=== PATIENT | male | born 1995 | race Caucasian/White ===

== ENCOUNTER 2016-07-10 07:20 | Emergency (ER) | payer SELFPAY ==
[~2016-07-10] VITALS: Ht 182.9 cm; Wt 74.8 kg
[~2016-07-10 07:20] MED LIST: BENZ100C18 PO; CEPH-507 PO; DENIES; DOXY100C2 PO; FAMO20TA5 PO; HYDR-3812 PO; HYDR-757 PO; METH4TAB PO; OMEP20CA12 PO; SUCR1ORA5 PO; SULF1TAB35 PO
--- OUTSIDE RECORDS SUMMARY | 2016-07-10 07:26 | XMS REPORT | Continuity of Care Document ---
Author Author [facility] Organization [facility] Address Unknown Phone Unavailable Care Team Providers Care Welfare Investigator Name Role Phone NO, LOCAL PHYSICIAN PCP Unavailable Insurance Providers Payer Name Policy Number Subscriber Name Relationship [employer] [id number] Ángel Villafana Self / Same As Patient Advance Directives Directive Response Recorded Date/Time Advance Directives No 10/31/15 9:40pm Health Care Power of Integrated Logistics Support Manager No 10/31/15 9:40pm Organ Donor No 10/31/15 9:40pm Chief Complaint and Reason for Visit Chief Complaint Abdominal/GI Problems Reason for Visit [id number] Nausea and vomiting Problems Active Problems Medical Problem Onset Date Status Biceps tendinitis Unknown Acute Bronchitis Unknown Acute Chest wall pain Unknown Acute Forearm laceration Unknown Acute Gastritis and duodenitis Unknown Acute Gastroenteritis Unknown Acute Hematoma Unknown Acute Left upper quadrant abdominal pain of unknown etiology Unknown Acute Marijuana use Unknown Acute Nausea and vomiting Unknown Acute Postoperative pain Unknown Acute Right upper quadrant pain Unknown Acute Upper abdominal pain Unknown Acute Medications Current Home Medications Medication Dose Units Route Directions Days/Qty Instructions Start Date Omeprazole 20 Mg 20 Mg Oral Twice A Day 30 01/03/16 Sucralfate 1 Gm/10 Ml 1 Gm Oral Four Times Daily 1200 30 minutes before meals and 30 minutes before bed. Shake well 01/03/16 Hydrocodone/Acetaminophen 1 Each 1 Each Oral Every 6 Hours as needed for Pain 8 01/03/16 Past Home Medications Medication Directions Ordered Status Famotidine (Pepcid) 20 Mg Tablet, 1 Each Oral Twice Daily And Prn 06/11/12 Discontinued Social History Social History Problem Response Recorded Date/Time Alcohol Use Occasionally Uses 10/31/2015 9:40pm Recreational Drug Use Y THC, METH--DENIES IV DRUG USE 10/31/2015 9:40pm Recent Foreign Travel No 12/31/2012 7:53pm Recent Infectious Disease Exposure Yes 03/26/2013 5:45pm Hospitalization with Isolation Denies 01/03/2016 7:05am Sexually Transmitted Disease No 01/03/2016 9:24am HIV/AIDS No 01/03/2016 9:24am Do you dip or chew tobacco? No 10/31/2015 9:40pm Recent Hopitalizations No 01/03/2016 9:24am Sexually Transmitted Disease No 01/03/2016 9:24am Hospitalization with Isolation Denies 01/03/2016 7:05am Hospital Discharge Instructions No hospital discharge instructions. Plan of Care Discharge Date 01/03/16 10:51am Disposition 01 HOME, SELF-CARE Condition at Discharge Improved Instructions/Education Provided Gastritis (ED) Acute Abdominal Pain (ED) Forms Provided Work Release Form Prescriptions See Medication Section Referrals CINTHIA AZAR DO - NO,LOCAL PHYSICIAN - Primary Care Physician Additional Instructions/Education Use omeprazole twice daily and use Carafate 30 minutes before meals and bedtime. Avoid the following: Large meals, eating close to bedtime, alcohol, tobacco products, marijuana, spicy foods, carbonation, caffeine, chocolate, citrus fruits and juices, tomato products, mint, NSAID medications such as ibuprofen or naproxen, or anything else you know irritate your stomach. Follow-up with Dr. Azar as soon as possible. Follow-up with your primary care provider as soon as possible. Return to care if symptoms worsen. Use Tylenol for mild pain or hydrocodone for more severe pain. All discharge instructions reviewed with patient and/or family. Voiced understanding. Functional Status No functional status results. Allergies, Adverse Reactions, Alerts No known allergies. Immunizations No immunization records. Vital Signs Acute Vital Signs Vital Response Date/Time Temperature (Fahrenheit) 98.7 degrees F (97.6 - 99.5) 01/03/2016 7:05am Temperature (Calculated Celsius) 37.68230 degrees C (36.4 - 37.5) 01/03/2016 7:05am Temperature Source Temporal 01/03/2016 7:05am Pulse Rate (adult) 78 bpm (60 - 90) 01/03/2016 7:05am Respiratory Rate 18 bpm (12 - 24) 01/03/2016 7:05am O2 Sat by Pulse Oximetry 98 % (88 - 100) 01/03/2016 7:05am Blood Pressure 130/103 mm Hg 01/03/2016 7:05am Blood Pressure Mean 112 mm Hg 01/03/2016 7:05am Pain Numeric Pain Scale 5-Moderate Pain 01/03/2016 8:00am Height (Feet) 6 feet 01/03/2016 7:05am Height (Calculated Centimeters) 182.117198 cm 01/03/2016 7:05am Weight (Pounds) 160 pounds 01/03/2016 7:05am Weight (Calculated Kilograms) 72.441815 kilograms 01/03/2016 7:05am Capillary Refill Capillary Refill Less Than 3 Seconds 01/03/2016 7:05am Height 6 ft 0 in Weight 160 lb Body Mass Index 21.7 kg/m^2 Results Laboratory Results Test Name Result Units Flags Reference Collection Date/Time Result Date/ Time Comments White Blood Count 6.6 10^3/uL 4.3-11.0 01/03/2016 7:16am 01/03/2016 7: 23am Red Blood Count 5.31 10^6/uL 4.35-5.85 01/03/2016 7:1601/03/2016 7: 23am Hemoglobin 16.1 G/DL 13.3-17.7 01/03/2016 7:1601/03/2016 7:23am Hematocrit 44 % 40-54 01/03/2016 7:1601/03/2016 7:23am Mean Corpuscular Volume 82 FL 80-99 01/03/2016 7:1601/03/2016 7: 23am Mean Corpuscular Hemoglobin 30 PG 25-34 01/03/2016 7:1601/03/2016 7: 23am Mean Corpuscular Hemoglobin Concent 37 G/DL H 32-36 01/03/2016 7:1605/2015 7:23am Red Cell Distribution Width 12.8 % 10.0-14.5 01/03/2016 7:162015 7:23am Platelet Count 269 10^3/uL 130-400 01/03/2016 7:1601/03/2016 7:23am Mean Platelet Volume 10.7 FL H 7.4-10.4 01/03/2016 7:1601/03/2016 7: 23am Neutrophils (%) (Auto) 57 % 42-75 01/03/2016 7:1601/03/2016 7:23am Lymphocytes (%) (Auto) 28 % 12-44 01/03/2016 7:1601/03/2016 7:23am Monocytes (%) (Auto) 12 % 0-12 01/03/2016 7:1601/03/2016 7:23am Eosinophils (%) (Auto) 2 % 0-10 01/03/2016 7:1601/03/2016 7:23am Basophils (%) (Auto) 1 % 0-10 01/03/2016 7:1601/03/2016 7:23am Neutrophils # (Auto) 3.8 X 10^3 1.8-7.8 01/03/2016 7:1601/03/2016 7: 23am Lymphocytes # (Auto) 1.9 X 10^3 1.0-4.0 01/03/2016 7:1601/03/2016 7: 23am Monocytes # (Auto) 0.8 X 10^3 0.0-1.0 01/03/2016 7:1601/03/2016 7: 23am Eosinophils # (Auto) 0.1 10^3/uL 0.0-0.3 01/03/2016 7:1601/03/2016 7 :23am Basophils # (Auto) 0.0 10^3/uL 0.0-0.1 01/03/2016 7:1601/03/2016 7: 23am Urine Color YELLOW 01/03/2016 7:58am 01/03/2016 8:36am Urine Clarity CLEAR 01/03/2016 7:58am 01/03/2016 8:36am Urine pH 7 5-9 01/03/2016 7:58am 01/03/2016 8:36am Urine Specific [place] 1.005 * 1.016-1.022 01/03/2016 7:58am 2015 8:36am Urine Protein 1+ * NEGATIVE 01/03/2016 7:58am 01/03/2016 8:36am Urine Glucose (UA) NEGATIVE NEGATIVE 01/03/2016 7:58am 01/03/2016 8: 36am Urine RBC (Auto) NEGATIVE NEGATIVE 01/03/2016 7:58am 01/03/2016 8: 36am Urine Ketones NEGATIVE NEGATIVE 01/03/2016 7:58am 01/03/2016 8:36am Urine Nitrite NEGATIVE NEGATIVE 01/03/2016 7:58am 01/03/2016 8:36am Urine Bilirubin NEGATIVE NEGATIVE 01/03/2016 7:58am 01/03/2016 8: 36am Urine Urobilinogen NORMAL MG/DL NORMAL 01/03/2016 7:58am 01/03/2016 8: 36am Urine Leukocyte Esterase NEGATIVE NEGATIVE 01/03/2016 7:58am 2015 8:36am Urine RBC NONE /HPF 01/03/2016 7:58am 01/03/2016 8:36am Urine WBC 0-2 /HPF 01/03/2016 7:58am 01/03/2016 8:36am Urine Bacteria NEGATIVE /HPF 01/03/2016 7:58am 01/03/2016 8:36am Urine Squamous Epithelial Cells 0-2 /HPF 01/03/2016 7:58am 2015 8:36am Urine Crystals NONE /LPF 01/03/2016 7:58am 01/03/2016 8:36am Urine Casts NONE /LPF 01/03/2016 7:58am 01/03/2016 8:36am Urine Mucus NEGATIVE /LPF 01/03/2016 7:58am 01/03/2016 8:36am Urine Culture Indicated NO 01/03/2016 7:58am 01/03/2016 8:36am Sodium Level 136 MMOL/L 135-145 01/03/2016 7:16am 01/03/2016 7:42am Potassium Level 3.6 MMOL/L 3.6-5.0 01/03/2016 7:16am 01/03/2016 7:42am Chloride Level 103 MMOL/L 98-107 01/03/2016 7:16am 01/03/2016 7:42am Carbon Dioxide Level 19 MMOL/L L 21-32 01/03/2016 7:16am 01/03/2016 7: 42am Anion Gap 14 MMOL/L 5-14 01/03/2016 7:1601/03/2016 7:42am Blood Urea Nitrogen 20 MG/DL H 7-18 01/03/2016 7:01/03/2016 7:42am Creatinine 1.24 MG/DL 0.60-1.30 01/03/2016 7:01/03/2016 7:42am BUN/Creatinine Ratio 16 01/03/2016 7:01/03/2016 7:42am Estimat Glomerular Filtration Rate > 60 01/03/2016 7:2015 7:42am GFR INTERPRETIVE DATA UNITS FOR ESTIMATED GFR (eGFR): mL/min/1.73 M2 REFERENCE RANGE FOR ESTIMATED GFR (eGFR) eGFR NORMAL eGFR >60 MODERATELY DECREASED eGFR 30-59 SEVERLY DECREASED eGFR 15-29 KIDNEY FAILURE <15 (OR DIALYSIS) Glucose Level 111 MG/DL H 70-105 01/03/2016 7:01/03/2016 7:42am Calcium Level 9.5 MG/DL 8.5-10.1 01/03/2016 7:01/03/2016 7:42am Magnesium Level 2.5 MG/DL H 1.8-2.4 01/03/2016 7:01/03/2016 7:43am Total Bilirubin 0.7 MG/DL 0.1-1.0 01/03/2016 7:01/03/2016 7:42am Alkaline Phosphatase 66 U/L 40-136 01/03/2016 7:01/03/2016 7:42am Aspartate Amino Transf (AST/SGOT) 22 U/L 5-34 01/03/2016 7:2015 7:42am Alanine Aminotransferase (ALT/SGPT) 16 U/L 0-55 01/03/2016 7:01/02 7:42am Total Protein 7.4 G/DL 6.4-8.2 01/03/2016 7:01/03/2016 7:42am Albumin 5.0 G/DL H 3.2-4.5 01/03/2016 7:01/03/2016 7:42am Lipase 13 U/L 8-78 01/03/2016 7:01/03/2016 8:50am Monoscreen NEGATIVE NEGATIVE 01/03/2016 7:01/03/2016 8:30am Procedures No known history of procedures. Encounters Encounter Location Arrival/Admit Date Discharge/Depart Date Attending Provider Registered Emergency Room [facility] 01/03/16 6:57am VLADIMIR MARTINEZ MD Recent Diagnosis
[2016-07-10] MEDS ORDERED: CLON1TAB PO (07:50)
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
[2016-07-10 09:49] VITALS: BP 139/90
== END 2016-07-10 09:52 | disposition left against medical advice (07) ==
LOC: EDUNIT# 07:20 → ER 07:22
DX: R51 Headache (principal); M54.5 Low back pain; Z53.29 Procedure and treatment not carried out because of patient's decision for other reasons
CPT/HCPCS: 99281